=== PATIENT | female | born 1965 | race African-American/Black ===

== ENCOUNTER 2021-02-01 11:57 | Outpatient (CLI) | payer OTHER | END 2021-02-01 11:58 | disposition home or self-care (01) | LOC: CSHMAMMO 11:57 | PROVIDERS: ATTEND Family Medicine | DX: Z12.31 Encounter for screening mammogram for malignant neoplasm of breast (principal); Z80.3 Family history of malignant neoplasm of breast | CPT/HCPCS: 77063; 77067 ==

== ENCOUNTER 2024-05-05 17:51 | Emergency (ER) | payer OTHER | END 2024-05-05 19:02 | disposition home or self-care (01) | LOC: CSHERS 17:51 | DX: M25.612 Stiffness of left shoulder, not elsewhere classified (principal); M25.611 Stiffness of right shoulder, not elsewhere classified; M43.6 Torticollis; V89.2XXA Person injured in unspecified motor-vehicle accident, traffic, initial encounter | CPT/HCPCS: 99283 ==

== ENCOUNTER 2024-12-01 15:27 | Emergency (ER) | payer OTHER, SELFPAY ==
[2024-12-01] MEDS ORDERED: Ketorolac Tromethamine 30 MG (1 mL) VIAL ONE (18:03)
== END 2024-12-01 19:17 | disposition home or self-care (01) ==
LOC: CSHERS 15:27
DX: J01.90 Acute sinusitis, unspecified (principal); B34.9 Viral infection, unspecified
CPT/HCPCS: 71046; 87081; 87428; 87430; 93005; 96372; J1885; J2919

== ENCOUNTER 2024-12-26 13:34 | Emergency (ER) | payer BC ==
[2024-12-26 15:29] LABS: #Basophils 0.03 10x3/uL (0.0-0.2); #Eosinophils 0.16 10x3/uL (0.0-0.5); #Monocytes 0.51 10x3/uL (0.0-1.1); #Neutrophils 2.67 10x3/uL (1.5-8.4); %Basophils 0.6 % (0.0-2.0); %Eosinophils 3.1 % (0.0-6.0); %Lymphocytes 34.8 % (18.0-47.0); %Monocytes 9.8 % (0.0-10.0); %Neutrophils 51.3 % (40.0-75.0); Hematocrit 34.2 % (34.9-44.5); Hemoglobin 10.9 g/dL (12.0-15.5); Mean Corpuscular Hemoglobin 28.5 pg (27.0-33.0); Mean Corpuscular Volume 89.3 fL (81.6-98.3); Platelet Count 329 10x3/uL (150-450); Red Blood Cell (RBC) Count 3.83 10x6/uL (3.90-5.03); White Blood Cell (WBC) Count 5.20 10x3/uL (3.5-10.5)
[2024-12-26 16:01] LABS: ALT (SGPT) 16 U/L (Less than 34); AST (SGOT) 18 U/L (11-34); Albumin 4.1 g/dL (3.1-4.5); Alkaline Phosphatase 93 U/L (40-110); Anion Gap 13 mmol/L (10-20); BUN (Urea Nitrogen) 17 mg/dL (9.8-20.1); Bilirubin, Total 0.4 mg/dL (0.3-1.2); Calc. Creatinine Clearance 0 mL/min (70-130); Calcium 8.8 mg/dL (7.8-10.44); Carbon Dioxide 24 mmol/L (22-29); Chloride 109 mmol/L (98-107); Globulin 3.0 g/dL (2.4-3.5); Glucose 88 mg/dL (70-105); Potassium 3.8 mmol/L (3.5-5.1); Sodium 142 mmol/L (136-145)
[2024-12-26 16:03] LABS: Troponin I Less than 0.010 ng/mL (< 0.028)
[2024-12-26 17:21] LABS: Glucose, Urine (Dipstick) Normal (Negative); Leukocyte Negative (Negative); Protein, Urine (Dipstick) Negative (Neg-Trace); Specific Gravity, Urine 1.025 (1.005-1.030)
[2024-12-26 17:43] LABS: Bacteria/HPF 2+ HPF (None Seen); CAUTI Indications for Culture Pelvic or flank pain; RBC/HPF 0-3 HPF (0-3); WBC/HPF 0-3 HPF (0-3)
[2024-12-26 17:44] LABS: Mucous/LPF 2+ LPF (<2+); Urine Culture Reflex No No
[2024-12-26 17:45] LABS: Troponin I Less than 0.010 ng/mL (< 0.028)
== END 2024-12-26 18:15 | disposition home or self-care (01) ==
LOC: CSHERS 13:34
DX: R07.9 Chest pain, unspecified (principal)
CPT/HCPCS: 71045; 80053; 81001; 84484; 85025; 93005